=== PATIENT | female | born 1990 | race Hispanic/Latino ===

== ENCOUNTER 2018-08-11 07:11 | Inpatient (IN) | payer OTHER ==
[2018-08-11] MEDS ORDERED: Lactated Ringer's 1,000 ML IV ONE (07:44)
[2018-08-11] MEDS ORDERED: Lactated Ringer's 1,000 ML IV SCH (07:45)
[2018-08-11] MEDS ORDERED: Sodium Citrate/Citric Acid 15 ml Sol PO ONE (07:47)
[2018-08-11] MEDS ORDERED: cefOXitin IV 2 gm in Dextrose 2 GM/50 ML BAG IVPB ONE ×2 (07:47→08:20)
[2018-08-11] MEDS ORDERED: Sodium Citrate/Citric Acid 15 ml Sol ONE (08:20)
[2018-08-11] MEDS ORDERED: Oxytocin 30 UNIT 0 UNITS/0 ML BAG IV ONE (08:26)
[2018-08-11] MEDS ORDERED: Oxytocin 20 units in LR 2,000 ML IV ONE (08:29)
[2018-08-11] MEDS ORDERED: Morphine 1 mg/ml preservative-free Inj(Duramorph) ONE (08:36)
[2018-08-11 08:45] LABS: BASO % 0.3 % (0.0-2.0); EOS # 0.1 K/uL (0.0-0.7); EOS % 0.7 % (0.0-4.0); HEMOGLOBIN 13.1 g/dL (11.0-16.0); LYMPH # 1.5 K/uL (1.0-4.3); LYMPH % 20.2 % (20.0-40.0); MEAN CELL VOLUME 90.3 fL (81.0-99.0); MEAN CORPUSCULAR HGB CONC 32.1 g/dL (33.0-37.0); MEAN PLATELET VOLUME 9.7 fL (7.2-11.7); MONO # 0.6 K/uL (0.0-0.8); MONO % 7.7 % (0.0-10.0); NEUT # 5.4 K/uL (1.8-7.0); NEUT % 71.1 % (50.0-75.0); NRBC % 0.1 % (0.0-2.0); RBC 4.52 Mil/uL (3.80-5.20); RED CELL DISTRIBUTION WIDTH 14.5 % (11.5-14.5); WHITE BLOOD COUNT 7.7 K/uL (4.8-10.8)
[2018-08-11 08:57] LABS: ALB/GLOB RATIO 1.4 (1.0-2.1); ALBUMIN 3.9 g/dL (3.5-5.0); ALT/SGPT 15 U/L (9-52); AST/SGOT 23 U/L (14-36); BLOOD UREA NITROGEN 8 mg/dL (7-17); CALCIUM 9.1 mg/dl (8.6-10.4); GFR NON-AFRICAN AMERICAN > 60
[2018-08-11 09:15] LABS: SQUAMOUS EPITHIAL 3 /hpf (0-5); URINE BACTERIA FEW (<OCC); URINE BILIRUBIN NEGATIVE (NEGATIVE); URINE BLOOD NEGATIVE (NEGATIVE); URINE CLARITY Hazy (Clear); URINE COLOR Yellow (YELLOW); URINE GLUCOSE (UA) NORMAL (Normal); URINE LEUKOCYTE ESTERASE 3+ Leu/uL (Negative); URINE PROTEIN NEGATIVE (NEGATIVE); URINE UROBILINOGEN NORMAL mg/dL (0.2-1.0)
--- NOTE | 2018-08-11 09:49 | OBHP ---
Datetime: 08/11/2018 08:01 IP Adm Impression: Term, intrauterine IP Admit Plan: Admit to unit; Initiate Section protocol Admit Comment, IP Provider: Patient is a 28 year old female, ,co ctx pain every 5 min since l ast night 01/25. LMP was 11/10/17 and CHANI was 08/17/18. Patient denies having any compalints, denies v aginal bleeding, fluid leakages, adn reprost nroma movments. pt rpeortrs she has an US done 07/20 with EFW of 9lbs 3 ounces. OB: Dr. Bashir Chun OBMONY Hx: denies hx of STIs, fibroids, cysts PMHx: denies SurgHx: denies FamHx: Maternal aunt- breast cancer, otherwise denies Allergies: NKDA Medications: vitamins A/P @ 39.1 wks in early labor, suspected macrosomia during evlatuion, pt SROM clear fluid 1cm/50/-3 r/b/a/i of PLTCS dw paietn given supected macrosomia consent obaitned admit npo, ivf amdsioinlabs ocnt too and efm anetheis/or aware Lungs - PN: Normal Heart - PN: Normal HEENT - PN: Normal General - PN: Normal FHR - Baseline A Provider: 140 Membranes, Provider: Ruptured Contraction Comments Provider: q 5 min Comments, ACOG Physical Exam: VSS PE: Gen: in no acute distress Heart: RRR, no Murmurs auscultated Lungs: CTA b/l anteriorly and posteriorly, no W/R/R Abd: nontender Ext: 1+ pitting edema, no tenderness IP Hx Assessment: The History has been Reviewed and is Current EGA AdmitDate IP: 39.1 Vital Signs Provider: Reviewed IP Chief Complaint: Uterine contractions; Suspected ruptured membranes NICHD Variability Prov Fetus A: Moderate 6-25bpm FHR Category Provider Fetus A: Category I Dilatation, Provider: 1 Effacement, Provider: 50 Station, Provider: -3
[2018-08-11] MEDS ORDERED: Oxytocin 10 Units/ml Inj ONE (10:03)
--- NOTE | 2018-08-11 10:39 | OBADHP ---
Datetime: 08/11/2018 08:01 Admit Comment, IP Provider: Patient is a 28 year old female, ,co ctx pain every 5 min since l ast night 01/25. LMP was 11/10/17 and CHANI was 08/17/18. Patient denies having any compalints, denies v aginal bleeding, fluid leakages, adn reprost nroma movments. pt rpeortrs she has an US done 07/20 with EFW of 9lbs 3 ounces. OB: Dr. Bashir Chun OBMONY Hx: denies hx of STIs, fibroids, cysts PMHx: denies SurgHx: denies FamHx: Maternal aunt- breast cancer, otherwise denies Allergies: NKDA Medications: vitamins A/P @ 39.1 wks in early labor, suspected macrosomia now with SROM during evlatuion, pt SROM clear fluid 1cm/50/-3 r/b/a/i of PLTCS dw paietn given supected macrosomia consent obaitned admit npo, ivf amdsioinlabs ocnt too and efm anetheis/or aware Lungs - PN: Normal Heart - PN: Normal HEENT - PN: Normal General - PN: Normal FHR - Baseline A Provider: 140 Membranes, Provider: Ruptured Contraction Comments Provider: q 5 min Comments, ACOG Physical Exam: VSS PE: Gen: in no acute distress Heart: RRR, no Murmurs auscultated Lungs: CTA b/l anteriorly and posteriorly, no W/R/R Abd: nontender Ext: 1+ pitting edema, no tenderness Postivie nitrazine IP Hx Assessment: The History has been Reviewed and is Current Vital Signs Provider: Reviewed IP Chief Complaint: Uterine contractions; Suspected ruptured membranes NICHD Variability Prov Fetus A: Moderate 6-25bpm FHR Category Provider Fetus A: Category I Dilatation, Provider: 1 Effacement, Provider: 50 Station, Provider: -3 EGA AdmitDate IP: 39.1 IP Adm Impression: Term, intrauterine IP Admit Plan: Admit to unit; Initiate Section protocol
--- NOTE | 2018-08-11 10:43 | OBDS ---
DELIVERY PERSONNEL Delivery Doctor: Estefany Chun MD Scrub Nurse: Sofia Arauz Game Design Instructor: Pau Barragan RN Anesthesiologist: olya Resident: agata MATERNAL INFORMATION Delivery Anesthesia: Spinal Medications in Delivery: pitocin 20/metergen / Estimated Blood Loss (ml): 800 Placenta Cultured: No Maternal Complications: None Provider Comments: live male cephalic presnetation agpar 9,9 weight of 9lbs 7 ounces ebl 800 ml normal appearin guteur, tubes adn ovaries b/l partner manager presnet for dleivery LABOR SUMMARY EDC: 08/17/2018 00:00 No. Babies in Womb: 1 Attempted: No Labor Anesthesia: None LABOR INFORMATION Reason for Induction: Not Applicable Oxytocin: N/A Steroids Given: None Reason Steroids Not Administered: Not Applicable MEMBRANES Membranes Rupture Method: Spontaneous Rupture of Membranes: 08/11/2018 09:10 Length of Rupture (hrs): 0.80 Amniotic Fluid Color: Clear Amniotic Fluid Amount: Moderate Amniotic Fluid Odor: Normal STAGES OF LABOR Stage 3 hrs: 0 Stage 3 min: 0 CSECTION DELIVERY Primary Indication: Other Secondary Indication: large baby CSection Urgency: Elective CSection Incidence: Primary Labor: No Labor Elective: Elective CSection Incision: Lower Uterine Transverse BABY A INFORMATION Delivery Date/Time: 08/11/2018 09:58 Method of Delivery: Born in Route : No : N/A Forceps: N/A Vacuum Extraction: N/A Shoulder Dystocia : No SHOULDER DYSTOCIA BABY A Delivery Date/Time: 08/11/2018 09:58 PRESENTATION/POSITION BABY A Presentation: Cephalic Cephalic Presentation: Vertex Breech Presentation: N/A PLACENTA INFORMATION BABY A Placenta Delivery Time : 08/11/2018 09:58 Placenta Method of Delivery: Manual Removal Placenta Status: Delivered SCORES BABY A Heart Rate 1 min: >100 bpm Resp Effort 1 min: Good Cry Reflex Irritability 1 min: Cough or Sneeze or Pulls Away Muscle Tone 1 min: Active Motion Color 1 min: Body [place], Extremities Blue SCORE 1 MIN: 9 Heart Rate 5 min: >100 bpm Resp Effort 5 min: Good Cry Reflex Irritability 5 min: Cough or Sneeze or Pulls Away Muscle Tone 5 min: Active Motion Color 5 min: Body [place], Extremities Blue SCORE 5 MIN: 9 INFANT INFORMATION BABY A Gestational Age at Delivery: 39.0 Gestational Status: Term Outcome : Liveborn Condition : Stable Infant Sex: Male IDENTIFICATION/MEDS BABY A ID Band Number: [id number] ID Band Location: Left Leg; Left Arm Sensor Applied: Yes Sensor Number: [id number] Sensor Location : Cord Clamp Vitamin K Given : Left Thigh Erythromycin Given: Given Both Eyes WEIGHT/LENGTH BABY A Infant Birthweight (gms): 4300 Infant Weight (lb): 9 Weight (oz): 8 Infant Length Inches: 20.00 Infant Length cms: 50.8 CORD INFORMATION BABY A No. Cord Vessels: 3 Nuchal Cord : N/A Cord Blood Taken: Yes Suction: Mouth; Nose ASSESSMENT BABY A Infant Complications: None Physical Findings at Delivery: Within Normal Limits Infant Respirations: Appears Normal Asp Developer/ALS Called : No Care By: dr martínez Transferred To: Remains with Mother
[2018-08-11] MEDS ORDERED: Oxycodone/Acetaminophen 5/325 mg Tab PO PRN (10:49)
[2018-08-11] MEDS ORDERED: HYDROmorphone 0.5 mg/0.5 ml ISec IVP PRN (10:57)
[2018-08-11] MEDS ORDERED: DiphenhydrAMINE 50 mg/ml Inj IVP PRN (10:58)
[2018-08-11] MEDS: Simethicone 80 mg Chewtab PO SCH ×3 (13:37→22:01)
--- NOTE | 2018-08-11 13:42 | OP ---
PROCEDURE DATE: 08/11/2018 SURGEON: Estefany Chun MD RAILWAY STATION MANAGER: Rio Simons MD PREOPERATIVE DIAGNOSES: Term intrauterine , spontaneous rupture of membranes, early labor, suspected macrosomia. POSTOPERATIVE DIAGNOSES: Term intrauterine , spontaneous rupture of membranes, early labor, suspected macrosomia. PROCEDURE PERFORMED: Primary low transverse section. OPERATIVE FINDINGS: Live male infant, cephalic presentation, Apgars 9 and 9, weight of 9 pounds 7 ounces. ESTIMATED BLOOD LOSS: 800 mL. BLOOD PRODUCTS: None. COMPLICATIONS: None. Dr. Rio Simons, assistant director of nursing, was present for the entire case, essentially in gaining entry, retraction, exposure, helping to hold the bladder blade, closing all layers, and was present for the entire case. SPECIMEN SENT TO PATHOLOGY: Placenta. ANESTHESIA: Spinal. ANESTHESIOLOGIST: . DESCRIPTION OF PROCEDURE: The patient was taken to the operating room, where she was given spinal anesthesia. Once it was found to be adequate, the patient was placed on the operating table in dorsal supine position. The patient was prepped and draped in the usual sterile fashion. The patient was given preoperative prophylactic antibiotics. A Pfannenstiel skin incision was made with a scalpel and carried down to the underlying fascia with the Bovie. The fascia was incised in the midline and the incision was extended laterally with the Bovie. The inferior aspect of the fascial incision was grasped with Allis and Venkata clamps, and the underlying rectus muscles were dissected off bluntly. Attention was then turned to the superior aspect of the fascial incision, which in a similar fashion was grasped with Allis and Venkata clamps, and the underlying rectus muscles were dissected off bluntly. The rectus muscles were then bluntly in the midline. The peritoneum was identified and entered in clear space. The incision was extended laterally and superiorly until there was good visualization of the bladder. The MyoSure device was then inserted. The vesicouterine peritoneum was incised in a transverse fashion with Metzenbaum scissors. The bladder flap was created digitally. The lower end of the Kari was then reinserted. The lower uterine segment was incised in a transverse fashion. The infant's head was delivered atraumatically, followed by delivery of the shoulders, followed by delivery of body. Both oral and nasal passages of the baby were bulb suctioned. The umbilical cord was clamped and cut. Baby was handed off to the awaiting computer information systems instructor. Cord blood and cord gases were collected and sent x2. The placenta was then delivered manually. The uterus was exteriorized of all clots and debris. The uterine incision was repaired with 0 Vicryl in a running continuous locked fashion. A second layer of the same suture was used to close the uterus in a running imbricating manner. The uterus was then returned to the abdomen. Pericolic gutters were cleared of all clots and debris. At the uterine incision site, there was good hemostasis noted. The peritoneum was reapproximated and closed with a 2-0 chromic in a running continuous fashion. The rectus was reapproximated and closed with 2-0 chromic in an interrupted manner. The fascia was reapproximated and closed with 0 Vicryl in a running continuous fashion. Subcutaneous tissue was closed with a 2-0 plain in interrupted manner, and the skin was reapproximated with 4-0 Monocryl in a running subcuticular fashion. At the end of the procedure, all needle, sponge, and instrument counts were noted to be correct x2. The patient tolerated the procedure well and was transferred to the recovery room in stable condition. Estefany Chun MD
--- NOTE | 2018-08-12 06:15 | OBPPN ---
Datetime: 08/12/2018 05:43 PP Pain Prov: Within normal limits PP Nausea Prov: Denies PP Flatus Prov: No PP BM Prov: Yes PP Breasts Prov: Normal PP Heart Prov: Normal PP Lungs Prov: Normal PP Abdomen/Uterus Prov: Normal PP Lochia Prov: Normal PP Vulva/Perineum Prov: Normal PP CVA Tenderness Prov: Normal PP Extremities Prov: Normal PP C/S Incision Prov: Normal PP Progress Prov: Normal PP Impression Prov: Normal progression PP Plan Prov: Continue present management PP Progress Note Prov: pt seen and examined reports pain controlled with pain medicaion. pt not yet ambulating, not yet voiding +Juarez, no gas, no fever, chills, nause, vomiting, cps, sob. VSS PE: GEN NAD AAO x 3 RESP: Ctab/l VS RRR, +S1/S2 BREAST: Non engorged b/l ABD: soft, NT/ND, no guarding no reboud tendenress, no rigidty INCISCON C/D/I FUNDUS: firm at lelve of ubmiucs, non tender VE: minimal locia, non tender, EXT: no calf tenderness A/P s/p PLTCS POD #1 doing well Pain managment dc juarez out of bed with assistnace am labs regular diet incentive spirometer abdominal binder IP PP Procedures: None Vital Signs Provider PP: Reviewed; Within Normal Limits
[2018-08-12] MEDS: Oxycodone/Acetaminophen 5/325 mg Tab PO PRN ×2 (06:22→21:18)
[2018-08-12 07:34] LABS: HEMOGLOBIN 13.2 g/dL (11.0-16.0); MEAN CELL VOLUME 90.7 fL (81.0-99.0); MEAN PLATELET VOLUME 9.5 fL (7.2-11.7); RBC 4.41 Mil/uL (3.80-5.20); RED CELL DISTRIBUTION WIDTH 14.5 % (11.5-14.5)
[2018-08-12 07:43] LABS: WHITE BLOOD COUNT 12.2 K/uL (4.8-10.8)
[2018-08-12] MEDS: Simethicone 80 mg Chewtab PO SCH ×4 (10:18→21:20)
[2018-08-12] MEDS: Prenatal Multivit/Folic Acid/Iron Tab PO SCH (10:18)
[2018-08-12] MEDS ORDERED: Bisacodyl 5mg EC Tab PO ONE (10:50)
[2018-08-13] MEDS: Oxycodone/Acetaminophen 5/325 mg Tab PO PRN (06:19)
[2018-08-13 08:41] VITALS: RESP 18
[2018-08-13] MEDS: Simethicone 80 mg Chewtab PO SCH ×4 (10:47→22:17)
[2018-08-13] MEDS: Prenatal Multivit/Folic Acid/Iron Tab PO SCH (10:47)
[2018-08-13] MEDS ORDERED: Influenza Vaccine 60 mcg/0.5 mL SYR (4YR UP) IM ONE (17:23)
[2018-08-14 08:32] VITALS: BP 109/76; PULSE 66; TEMP 97.9; O2SAT 98
[2018-08-14] MEDS: Prenatal Multivit/Folic Acid/Iron Tab PO SCH (09:36)
[2018-08-14] MEDS: Simethicone 80 mg Chewtab PO SCH (09:36)
--- NOTE | 2018-08-14 13:08 | OBDCSUM ---
Datetime: 08/14/2018 08:24 Discharged to, Provider: Home Follow up at, Provider: Dr Adiel Kirkland Instr Activity: Normal activity; May Shower Disch Instr Diet: Regular Discharge Diet restrict Prov: none Discharge Time: 08/14/2018 12:00 Follow up in weeks, Provider: one week Disch Referrals: None Disch Activity Restrictions: No exercising; No lifting; No sexual activity; Nothing in vagina - Inte rcourse, tampons, douche
--- NOTE | 2018-08-14 13:08 | OBPPN ---
Datetime: 08/14/2018 13:04 PP Pain Prov: Within normal limits PP Nausea Prov: Denies PP Flatus Prov: Yes PP BM Prov: No PP Breasts Prov: Normal PP Heart Prov: Normal PP Lungs Prov: Normal PP Abdomen/Uterus Prov: Normal PP Lochia Prov: Normal PP Vulva/Perineum Prov: Normal PP CVA Tenderness Prov: Normal PP Extremities Prov: Normal PP C/S Incision Prov: Not Applicable PP Progress Prov: Normal PP Comments Phys Exam Prov: Incicon c/d/i fudnus firm, below level o fubmic PP Impression Prov: Normal progression PP Plan Prov: Discharge PP Progress Note Prov: pt seen adn examien dno co mpliants VS see above PE see above a/p s/p PLTCS POD #3 doing well dc home rto 1 week precauoting givne Vital Signs Provider PP: Reviewed Vital Signs Provider Details PP: repeta heart rate wnl
== END 2018-08-14 13:36 | disposition home or self-care (01) | DRG 788 ==
LOC: C.EROB 07:11 → C.4D 07:50 → C.4M 12:52
PROVIDERS: ADMIT Obstetrics & Gynecology; ATTEND Obstetrics & Gynecology
PROC: 10D00Z1 Extraction of Products of Conception, Low, Open Approach (ICD-10-PCS; principal; 2018-08-11)
DX: O36.63X0 Maternal care for excessive fetal growth, third trimester, not applicable or unspecified (principal); Z3A.39 39 weeks gestation of pregnancy; Z37.0 Single live birth